=== PATIENT | female | born 1955 | race Caucasian/White ===

== ENCOUNTER 2020-03-27 09:32 | Outpatient (CLI) | payer OTHER | END 2020-03-27 09:44 | disposition HB | LOC: SONOGRAMA 09:32 | PROVIDERS: ATTEND Obstetrics & Gynecology | DX: D28.0 Benign neoplasm of vulva (principal); N90.7 Vulvar cyst; C81.08 Nodular lymphocyte predominant Hodgkin lymphoma, lymph nodes of multiple sites; R22.2 Localized swelling, mass and lump, trunk ==